=== PATIENT | male | born 1955 | race Caucasian/White ===

== ENCOUNTER 2018-12-12 09:05 | Inpatient (IN) | payer BC, SELFPAY ==
[2018-12-12] MEDS ORDERED: Acetaminophen 500 MG TAB PO PRN (10:52)
[2018-12-12] MEDS ORDERED: CCU Electrolyte Replacement 1 EACH FS ONE (10:52)
[2018-12-12] MEDS ORDERED: Midazolam HCl 2 mg/2 ml Vial ONE (11:25)
[2018-12-12] MEDS ORDERED: Propofol 1,000 MG/100 ML VIAL IV ONE (11:34)
[2018-12-12] MEDS ORDERED: Vecuronium 10 MG VIAL ONE ×2 (11:44→12:25)
[2018-12-12] MEDS ORDERED: Ventilator Sedation Protocol 1 EACH FS SCH (12:15)
[2018-12-12 12:52] LABS: Actual Bicarbonate (HCO3a) 24.7 mEq/L (22-28); Base Excess (BEa) 3.8 mEq/L (-2.0 to +3.0); Calcium, Ionized 1.06 mmol/L (1.12-1.30); Carboxyhemoglobin (COHb) 0.5 gm% (0.0-3.0); Hemoglobin (Hb) 10.3 g/dL (14.0-18.0); O2 Tension (PaO2) 282.4 mmHg (> 80.0); Potassium - ABG Lab 4.47 mmol/L (3.70-5.30)
[2018-12-12 12:58] LABS: CO2 Tension 25.6 mmHg (35.0-45.0); Puncture Site RRA
[2018-12-12 13:01] LABS: Hemoglobin 10.3 g/dL (14.0-18.0); Mean Corpuscular HGB CONC 32.8 g/dL (32.0-36.0); Mean Corpuscular Hemoglobin 30.8 pg (27.0-31.0); Mean Platelet Volume 8.4 fL (7.4-10.4); Platelet Count 212 thou/uL (130-400); Red Blood Cell (RBC) Count 3.35 mill/uL (4.70-6.10); White Blood Cell (WBC) Count 10.7 thou/uL (4.8-10.8)
[2018-12-12 13:12] LABS: ALT (SGPT) 23 U/L (8-55); AST (SGOT) 22 U/L (5-34); Albumin 2.8 g/dL (3.4-4.8); Alkaline Phosphatase 51 U/L (40-150); Anion Gap 14 mmol/L (10-20); BUN (Urea Nitrogen) 9 mg/dL (8.4-25.7); Bilirubin, Total 0.8 mg/dL (0.2-1.2); Calc. Creatinine Clearance 0 mL/min (70-130); Calcium 8.3 mg/dL (7.8-10.44); Carbon Dioxide 24 mmol/L (23-31); Chloride 102 mmol/L (98-107); Estimated GFR-MDRD Greater than 90; Globulin 3.1 g/dL (2.4-3.5); Glucose 122 mg/dL (80-115); Potassium 4.5 mmol/L (3.5-5.1); Protein, Total 5.9 g/dL (5.8-8.1); Sodium 135 mmol/L (136-145)
[2018-12-12 13:19] VITALS: BMI 30.2
[2018-12-12 13:23] LABS: Band 8 % (5-11); Lymphocytes 2 % (21-51); MDiff Complete? YES; Monocytes 3 % (0-10); Neutrophil 87 % (42-75); Platelet Morphology Comment Appears Adequate
[2018-12-12] MEDS ORDERED: Potassium Chloride 40 MEQ in Sodium Chloride 0.9% 250 ML 250 ML IVPB PRN (13:30)
[2018-12-12] MEDS ORDERED: Potassium Chloride 20 MEQ TAB PO PRN (13:30)
[2018-12-12] MEDS ORDERED: Potassium Phosphate 15 MMOL in Sodium Chloride 0.9% 250 ML 250 ML IV PRN (13:30)
[2018-12-12] MEDS ORDERED: Potassium Chloride 40 MEQ in Premix Bag 1 BAG IVPB PRN (13:30)
[2018-12-12] MEDS ORDERED: Potassium Phosphate 12 MMOL in Sodium Chloride 0.9% 250 ML 250 ML IV PRN (13:30)
[2018-12-12] MEDS ORDERED: Magnesium Oxide 400 MG TAB PO PRN ×2 (13:30)
[2018-12-12] MEDS ORDERED: Potassium Phosphate 9 MMOL in Sodium Chloride 0.9% 100 ML IVPB PRN (13:30)
[2018-12-12] MEDS ORDERED: Magnesium 2 GM/NS 0.9% 100 ML 2 GM in Premix Bag 1 BAG IVPB PRN (13:30)
[2018-12-12] MEDS ORDERED: Morphine 2 MG/ML SYRINGE SLOW IVP PRN (13:34)
[2018-12-12] MEDS ORDERED: Lorazepam 2 MG/ML VIAL SLOW IVP PRN (13:34)
[2018-12-12] MEDS ORDERED: Fentanyl BOLUS 250 ML IVPB PRN (13:34)
[2018-12-12] MEDS ORDERED: Propofol BOLUS 1,000 MG/100 ML VIAL IV PRN (13:34)
--- NOTE | 2018-12-12 13:42 | OP ---
DATE OF PROCEDURE: 12/12/2018 PROCEDURE PERFORMED: Endotracheal intubation and fiberoptic bronchoscopy. PREOPERATIVE DIAGNOSIS: Respiratory failure with bilateral infiltrates. POSTOPERATIVE DIAGNOSIS: Respiratory failure with bilateral infiltrates. ANESTHESIA: The patient was given a total of 20 mg etomidate IV, he was also given propofol and Norcuron 10 mg IV at the conclusion of the procedure. Informed consent was obtained verbally from the patient's and from the patient itself. He understood that this was necessary because of progressive respiratory failure and bilateral infiltrates from pneumonia. The patient was placed in supine position. He was preoxygenated with BiPAP 100%. I intubated him orally with a GlideScope on the first inspection with a size 3 scope blade. It was impossible to pass the tube through the cords. On the second attempt with a size 4 blade, I intubated him on the first time; however, the cup from the tube leaked and had to be exchanged. The exchange was somewhat problematic and essentially, I would go back and just reintubate him with 7.5 endotracheal tube under direct GlideScope visualization. End tidal CO2 was confirmed by auscultation, the color change on the end-tidal CO2 detector. It should be noted that the intubation is very difficult secondary to anterior airway. The patient was then placed on mechanical ventilation. A bronchoscope was placed down the endotracheal tube. The tube was approximately 5 cm above the armin. There were some hemorrhagic areas noted in the right middle lobe and left upper lobe. Otherwise, the airways was clear. Bronchoalveolar lavage was performed with 100 mL of normal saline in the right middle lobe and sent for appropriate studies, and that procedure was tolerated well. Job ID: [id number]
[2018-12-12] MEDS: Sodium Chloride 0.45% 1,000 ML IV SCH (13:44)
[2018-12-12] MEDS: Cefepime 1 GM in Sodium Chloride 0.9% 100 ML IVPB SCH (13:45)
--- NOTE | 2018-12-12 13:46 | HP ---
This is 120 minutes of critical care time. 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 His initial complaint was some diarrhea, some vomiting, weakness, and fatigue. Initially, felt that he could have pneumonia. He was started on Rocephin and Zithromax in the emergency room, but had been taking Levaquin and vancomycin in the hospital. Over the last 4 days, he has felt worse to the point, where he is now requiring BiPAP for oxygenation ventilation. His x-ray has severely worsened. The [facility] did not have any pulmonary presence continuously on the campus. A friend of Dr. Aguila, Dr. Jhony Thornton contacted me and asked if I would take him in transfer, which I was happy to do this morning. I touch base with Dr. March and Dr. Monroy in [facility], who gave me a good report. PAST MEDICAL HISTORY: Essentially negative. PAST SURGICAL HISTORY: Umbilical hernia repair. MEDICATIONS: Prior to admission; 1. Propecia 1 mg daily. 2. Ibuprofen 800 mg four times a week. SOCIAL HISTORY: He is an actively practicing dentist. He does not drink alcohol. Does not use illicit drugs. Does not smoke. He is . ALLERGIES: PENICILLIN WAS REPORTED AN ALLERGY WHEN HE WAS A CHILD. HE DOES NOT KNOW WHAT KIND OF REACTION THAT CAUSES. REVIEW OF SYSTEMS: I spoke to Dr. Aguila briefly before he was intubated. He said he has had some nausea, but other than that his GI symptoms abated. He had a dry cough. He was complaining of a congested nose. PHYSICAL EXAMINATION: VITAL SIGNS: Heart rate 76, blood pressure 135/83, O2 saturation 100%, respiratory rate 24, and temperature 97.1. GENERAL: He is a well-developed, well-nourished male, who was in acute respiratory distress. His minute ventilation was about 30 L/minute and his respiratory rate was about 50 when he was on the BiPAP. HEENT: Pupils are reactive. Sclerae anicteric. Oropharynx dry. NECK: Without adenopathy or JVD. LUNGS: He had diffuse crackles bilaterally. CARDIOVASCULAR: S1 and S2, slightly tachycardic without murmur. ABDOMEN: Soft, obese, nontender, and nondistended. EXTREMITIES: No clubbing, cyanosis, or edema. No rashes noted. NEUROLOGIC: He was moving all 4 extremities and was alert and oriented. LABORATORY DATA: His laboratory data from this facility is pending. The labs I have from [facility] showed a negative influenza A and B titer, hemoglobin A1c of 5.5. PH is 7.42, pCO2 of 35, pO2 of 71 on the BiPAP yesterday. White blood cell 9.2, hemoglobin 9.7, hematocrit 29.4, and platelet count 185 with 77% neutrophils, no bandemia noted, but prior to that he had 40 and 44 bands on the two previous days. CBCs; his last sodium 135, potassium 3.8, chloride 101, CO2 of 27, BUN 9, creatinine 1.0, glucose 115, and calcium 7.9. I reviewed x-rays from his day of admission until yesterday from [facility]. Also reviewed the one that was taken today after I intubated him. He has diffuse bilateral infiltrates, which are worse at the bases. Endotracheal tube was slightly high about 5 cm, which has been placed lower. He has an OG tube in place. ASSESSMENT: 1. Bilateral pneumonia, which may be viral versus bacteria. 2. Acute hypoxic respiratory failure, requiring mechanical ventilation. 3. Anemia-etiology uncertain. PLAN: 1. Dr. Aguila was worsening on BiPAP and continued respiratory distress. I told him and his that I recommended that he be intubated and we just ride this out. I have consulted Dr. Beltran from Infectious Disease to help with antibiotic choice. I am empirically starting the patient on steroids. I have performed bronchoscopy so that we could send the material to the lab and see if anything else grows out; however, since he is already on antibiotics, the yield from bronchoscopy is going to be quite low. 2. DVT prophylaxis with enoxaparin and SCDs. 3. GI prophylaxis with Protonix. 4. Start enteral tube feeds per nutrition recommendations. 5. Check echocardiogram. 6. Prognosis, guarded. This patient's acuity is highly complex. Job ID: [id number]
[2018-12-12] MEDS: Vecuronium 10 MG VIAL IVP PRN ×2 (13:47→14:53)
[2018-12-12] MEDS ORDERED: Acetaminophen 650 MG/20.3 ML UDCUP PO PRN (14:00)
--- NOTE | 2018-12-12 14:16 | RAD ---
PORTABLE AP CHEST: Date: 12/12/18 HISTORY: On ventilator. COMPARISON: None available. FINDINGS: Endotracheal tube is noted in place with tip overlying the T4 vertebral body and above the level of t he armin. Nasogastric tube is noted in place, which courses into the left upper quadrant, but tip is not imaged. There are confluent opacities seen at each lung base and in the mid lung zones bilaterally with more dense area of consolidation at the right lung base. Findings are likely attributable to multifocal pn eumonia, and atypical pneumonia is a possibility. Cardiac silhouette is within normal limits. Pulmona ry vasculature is at the upper limits of normal. Osseous structures are intact. IMPRESSION: 1. Findings likely attributable to multifocal pneumonia with dense area of consolidation at the righ t lung base. Atypical pneumonia is a possibility. Follow-up to complete resolution is recommended. 2. Lines and tubes in place. POS: [facility]
[2018-12-12] MEDS: Vancomycin HCl 1 GM in Premix Bag 1 BAG IVPB SCH (15:00)
[2018-12-12] MEDS ORDERED: Piperacillin/Tazobactam 3.375 GM in Sodium Chloride 0.9% 100 ML IVPB SCH (18:00)
[2018-12-12] MEDS: fentaNYL Citrate/PF 2,000 MCG in Sodium Chloride 0.9% 60 ML IV SCH (18:11)
[2018-12-12] MEDS: Propofol 1,000 MG/100 ML VIAL IV PRN (21:40)
[2018-12-13] MEDS: Sodium Chloride 0.45% 1,000 ML IV SCH ×2 (00:05→18:38)
[2018-12-13] MEDS: Vecuronium 10 MG VIAL IVP PRN ×2 (00:05→00:35)
[2018-12-13] MEDS: Vancomycin HCl 1 GM in Premix Bag 1 BAG IVPB SCH ×2 (02:11→14:51)
[2018-12-13] MEDS: Cefepime 1 GM in Sodium Chloride 0.9% 100 ML IVPB SCH ×2 (02:11→14:50)
[2018-12-13] MEDS: Propofol 1,000 MG/100 ML VIAL IV PRN ×4 (03:48→20:29)
[2018-12-13 04:42] LABS: #Lymphocytes 0.6 thou/uL (1.20-3.40); #Monocytes 0.7 thou/uL (0.11-0.59); %Eosinophils 0.1 % (0.0-10.0); %Lymphocytes 6.8 % (21.0-51.0); %Monocytes 8.3 % (0.0-10.0); %Neutrophils 84.8 % (42.0-75.0); Hemoglobin 9.5 g/dL (14.0-18.0); Mean Corpuscular HGB CONC 32.3 g/dL (32.0-36.0); Mean Corpuscular Hemoglobin 30.5 pg (27.0-31.0); Mean Corpuscular Volume 94.6 fL (78.0-98.0); Mean Platelet Volume 8.1 fL (7.4-10.4); Platelet Count 221 thou/uL (130-400); RBC Distribution Width 13.1 % (11.5-14.5); Red Blood Cell (RBC) Count 3.11 mill/uL (4.70-6.10); White Blood Cell (WBC) Count 8.2 thou/uL (4.8-10.8)
[2018-12-13 05:05] LABS: ALT (SGPT) 22 U/L (8-55); AST (SGOT) 15 U/L (5-34); Albumin 2.6 g/dL (3.4-4.8); Alkaline Phosphatase 50 U/L (40-150); Anion Gap 13 mmol/L (10-20); BUN (Urea Nitrogen) 14 mg/dL (8.4-25.7); Bilirubin, Total 0.4 mg/dL (0.2-1.2); Calc. Creatinine Clearance 142 mL/min (70-130); Calcium 8.4 mg/dL (7.8-10.44); Carbon Dioxide 24 mmol/L (23-31); Chloride 105 mmol/L (98-107); Estimated GFR-MDRD Greater than 90; Glucose 200 mg/dL (80-115); Potassium 4.3 mmol/L (3.5-5.1); Protein, Total 5.6 g/dL (5.8-8.1); Sodium 138 mmol/L (136-145)
[2018-12-13 06:54] LABS: Actual Bicarbonate (HCO3a) 24.8 mEq/L (22-28); Calcium, Ionized 1.16 mmol/L (1.12-1.30); Carboxyhemoglobin (COHb) 0.1 gm% (0.0-3.0); O2 Tension (PaO2) 86.4 mmHg (> 80.0); Potassium - ABG Lab 4.18 mmol/L (3.70-5.30)
[2018-12-13 06:57] LABS: Puncture Site RRA
--- NOTE | 2018-12-13 07:53 | RAD ---
PORTABLE CHEST: HISTORY: Respiratory distress. COMPARISON: Prior day's exam. FINDINGS: Endotracheal and NG tubes are in satisfactory position. Interstitial alveolar lung changes are stabl e. IMPRESSION: Stable exam. POS: [facility]
[2018-12-13] MEDS ORDERED: Dextrose 50% Abboject 50 ML SYRINGE SLOW IVP PRN (08:13)
[2018-12-13] MEDS ORDERED: Dextrose 5% in Water 1,000 ML IV PRN (08:13)
--- NOTE | 2018-12-13 08:15 | CON ---
DATE OF CONSULTATION: 12/12/2018 REASON FOR CONSULTATION: Severe pneumonia. 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 Some of the emesis had some coffee grounds associated with it. He was seen at the [facility] ER and admitted. Given Rocephin, Zithromax and then transition to Levaquin and vancomycin in the hospital. There was worsening of the initial infiltrates, he developed diffuse pneumonitis pattern. The influenza A and B antigen test was negative. He was placed on BiPAP and because of concerns with the status of the ICU at [facility] with irregular staffing, it was decided to transfer him to [facility] and he was accepted by Dr. Freed and the patient was transferred to the ICU at [facility], and he was intubated this morning. I spoke with his son and apparently one week before his illness, two other members of the family had similar diarrheal and vomiting episodes. The patient is intubated, is on FiO2 of 45, PEEP of 5, and his O2 saturations just dropped after he was moved to the left lateral decubitus , they had been in the upper 90s, but now they are in the 88 range. PAST MEDICAL HISTORY: Negative, except for arthritis of the thumbs, for which he takes ibuprofen daily. He had an umbilical hernia repair in the past. SOCIAL HISTORY: He is a dentist. He does not smoke. . No alcoholic beverage use. ALLERGIES: HE IS ALLERGIC TO PENICILLIN WHEN HE WAS A CHILD, PROBABLY NOT SIGNIFICANT. FAMILY HISTORY: Noncontributory. CURRENT MEDICATIONS: 1. Albuterol. 2. Cefepime. 3. Levofloxacin. 4. Vancomycin. 5. He is Medrol as well. 6. Morphine. 7. Pantoprazole. PHYSICAL EXAMINATION: VITAL SIGNS: T-max 102 and blood pressure 117/60, O2 saturations ranged from 88 % to 96% depending on what decubitus he is in; he is right now 93%. Urine output thus far is 360 this morning. SKIN: Peripheral IV access and the Ott catheter. GENERAL: The patient is sedated. HEENT: Conjunctivae are clear. Pupils are miotic as expected. Orotracheal intubation. NECK: Without jugular vein distention. Supple. LUNGS: Symmetric air entry. A few crackles in the right base. ABDOMEN: Soft, not distended. No organomegaly. No ascites. No bladder distention. Ott catheter in place. HEART: S1 and S2 without murmurs. No S3 or S4. EXTREMITIES: No joint inflammatory activity. No edema. Pulses are 1+ in dorsalis pedis. Cap refill is normal. He is sedated, SO WE CANNOT TEST HIS MOVEMENTS or his cognitive function. LABORATORY DATA: White cell count was 10.7, hemoglobin 10.3, and platelets 212 with 87% neutrophils, white cell count was 4.3 with 39% bands. His ABGs, pH of 7.6, pCO2 of 25, pO2 of 282. Sodium 135 and creatinine 0.77. Liver profile normal. Albumin 2.8. Globulin 3.1. Microbiology, we have the bronchoalveolar lavage with numerous WBCs, but cultures are pending. Respiratory virus PCR panel was pending as well. DIAGNOSTIC DATA: Chest x-ray shows multifocal pneumonitis with more dense consolidation localized to the right lung base which is where the whole thing started if one looks at the initial chest x-ray done at the [facility]. The bronchoscopy notes have been reviewed. There are some hemorrhagic areas in the right middle lobe and left upper lobe. Otherwise, airways were clear. ASSESSMENT: Otherwise, healthy dentist, who developed nausea, vomiting, and diarrhea with a similar illness in a few members of the family the week before his illness started now with rapidly progressive multifocal pneumonia. DISCUSSION: The differential diagnosis includes a viral pneumonia with or without superimposed bacterial pneumonitis. We will wait for the assays and continue current antimicrobial regimen. The possibility of aspiration does not appear to be likely noninfectious autoimmune process with vasculitis is. We will have to be considered depending on the clinical course and results of the assays and cultures. Job ID: [id number] [facility]
[2018-12-13] MEDS ORDERED: Pantoprazole 40 MG VIAL IVP SCH (09:00)
[2018-12-13] MEDS: Pantoprazole 40 MG VIAL IVP SCH (09:10)
[2018-12-13] MEDS: Enoxaparin Sodium 40 MG/0.4 ML SYRINGE SC SCH (09:25)
--- NOTE | 2018-12-13 09:34 | PRG ---
DATE OF SERVICE: 12/13/2018 PULMONARY/CRITICAL CARE PROGRESS NOTE TIME SPENT: 35 minutes critical time. 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 He will wake up and squeeze hands when asked. OBJECTIVE: VITAL SIGNS: On exam, his temperature is 97.7 with a T-max of 102, pulse 59, blood pressure 105/58. A 24-hour intake 2080, output 2145. Weight 216 pounds. HEENT: Intubated. OG tube in place. NECK: No JVD. LUNGS: Crackles anteriorly. CARDIAC: S1 and S2. Regular. ABDOMEN: Soft. EXTREMITIES: No edema. LABORATORY DATA: Sodium 138, potassium 4.3, chloride 105, CO2 of 24, BUN 14, creatinine 0.7, glucose 200. BNP was 299, albumin 2.6. White blood cell count 8.2, hematocrit 29.4, and platelet count 221. His nasopharyngeal swab was positive for type A flu, but his PCR respiratory virus panel did not show type A influenza. His chest x-ray shows continued bilateral infiltrates, which I do not think has changed much since the day before. Blood gas; pH 7.40, pCO2 of 41, pO2 of 86, that is on bilevel 24/10 with FiO2 of 40%. ASSESSMENT: 1. Acute respiratory failure secondary to bilateral pneumonia. 2. Acute respiratory distress syndrome. 3. Anemia, probably due to illness. 4. Hyperglycemia due to steroid use. PLAN: 1. The patient's oxygenation has improved. I will go down some on his bilevel pressures. 2. Up in a chair as tolerated. 3. Discontinue use of all paralytics. 4. Continue broad-spectrum IV antibiotics. 5. Appreciate input of Dr. Beltran. 6. Add sliding scale insulin. 7. Continue enteral tube feeds. 8. I will update family when they are available. Job ID: [id number]
[2018-12-13] MEDS: HumaLOG 300 UNITS/3 ML VIAL SC PRN ×2 (12:34→18:38)
[2018-12-13] MEDS ORDERED: Vancomycin HCl 1.25 GM in Premix Bag 1 BAG IVPB SCH (17:00)
--- NOTE | 2018-12-13 17:45 | PRG ---
DATE OF SERVICE: 12/13/2018 SUBJECTIVE: Still intubated and sedated in the ICU. He is on a bilevel at this time. His T-max was 102 on December 12. He has been afebrile since. OBJECTIVE: VITAL SIGNS: Blood pressure 111/66, pulse 81, respirations 16, and O2 saturation 97%. HEENT: Conjunctivae are clear. Orotracheal intubation. LUNGS: Coarse breath sounds. HEART: S1 and S2. Regular rate. ABDOMEN: Soft not distended. NEUROLOGIC: Could not test his movements. According to the nurse, he will arouse when the sedation is withdrawn and starts moving around. LABORATORY DATA: White cell count 8.2, hemoglobin 9.5, platelets 221 with 84% neutrophils. PH 7.4, pCO2 of 41, PO2 of 86. Sodium 138, creatinine 0.74. Liver profile is normal. Albumin 2.6. Respiratory virus PCR panel, no virus was detected. Culture from the BAL, quantitative, rare normal respiratory gabby present. Followup chest x-ray, interstitial alveolar changes, which are stable. ASSESSMENT AND DISCUSSION: Nausea, vomiting, diarrhea, and respiratory illness with rapid progression, respiratory failure, multifocal pneumonia with thus far negative microbiology workup. Differential diagnosis again is community-acquired pneumonia with severe manifestation with usual pathogens versus a more resistant pathogen or a noninfectious disorder. Among the noninfectious disorder, vasculitides and etiopathic pneumonitis in forms of pneumonitis are less likely. The patient probably developed ARDS type of picture, now with requiring high levels of ventilatory support, currently on broad-spectrum coverage. Cefepime, levofloxacin, and vancomycin to be continued. Increase the cefepime dosage. Job ID: [id number]
[2018-12-13 18:01] LABS: Vancomycin, Trough 23.9 ug/mL
[2018-12-13 18:04] LABS: Complement-C4 15.4 mg/dL (15-53)
[2018-12-13] MEDS ORDERED: VANCOMYCIN IVPB PRN (18:14)
[2018-12-13] MEDS: fentaNYL Citrate/PF 2,000 MCG in Sodium Chloride 0.9% 60 ML IV SCH (22:17)
[2018-12-14] MEDS: Cefepime 2 GM in Sodium Chloride 0.9% 100 ML IVPB SCH ×2 (00:35→13:49)
[2018-12-14] MEDS: HumaLOG 300 UNITS/3 ML VIAL SC PRN ×4 (00:45→23:57)
[2018-12-14] MEDS: Vancomycin HCl 1 GM in Premix Bag 1 BAG IVPB SCH ×2 (01:34→13:49)
[2018-12-14] MEDS: Propofol 1,000 MG/100 ML VIAL IV PRN ×5 (01:34→23:32)
[2018-12-14] MEDS: Sodium Chloride 0.45% 1,000 ML IV SCH ×2 (04:28→12:32)
[2018-12-14 05:02] LABS: #Eosinphils 0.1 thou/uL (0.0-0.7); #Lymphocytes 1.2 thou/uL (1.20-3.40); #Neutrophils 10.2 thou/uL (1.40-6.50); %Basophils 0.1 % (0.0-1.0); %Eosinophils 0.5 % (0.0-10.0); %Lymphocytes 9.4 % (21.0-51.0); %Monocytes 7.9 % (0.0-10.0); %Neutrophils 82.1 % (42.0-75.0); Hemoglobin 9.5 g/dL (14.0-18.0); Mean Corpuscular HGB CONC 32.3 g/dL (32.0-36.0); Mean Corpuscular Hemoglobin 30.5 pg (27.0-31.0); Mean Corpuscular Volume 94.6 fL (78.0-98.0); Mean Platelet Volume 8.2 fL (7.4-10.4); Platelet Count 298 thou/uL (130-400); RBC Distribution Width 13.1 % (11.5-14.5); Red Blood Cell (RBC) Count 3.12 mill/uL (4.70-6.10); White Blood Cell (WBC) Count 12.4 thou/uL (4.8-10.8)
[2018-12-14 05:23] LABS: Anion Gap 13 mmol/L (10-20); BUN (Urea Nitrogen) 23 mg/dL (8.4-25.7); Calc. Creatinine Clearance 144 mL/min (70-130); Calcium 8.6 mg/dL (7.8-10.44); Carbon Dioxide 24 mmol/L (23-31); Chloride 105 mmol/L (98-107); Estimated GFR-MDRD Greater than 90; Glucose 184 mg/dL (80-115); Potassium 4.5 mmol/L (3.5-5.1); Sodium 137 mmol/L (136-145)
[2018-12-14 06:43] LABS: Base Excess (BEa) 1.9 mEq/L (-2.0 to +3.0); CO2 Tension 38.9 mmHg (35.0-45.0); Calcium, Ionized 1.17 mmol/L (1.12-1.30); Carboxyhemoglobin (COHb) 1.1 gm% (0.0-3.0); Hemoglobin (Hb) 10.4 g/dL (14.0-18.0); O2 Tension (PaO2) 60.8 mmHg (> 80.0); Potassium - ABG Lab 4.39 mmol/L (3.70-5.30); pH, Arterial 7.44 (7.35-7.45)
[2018-12-14 06:45] LABS: Puncture Site RB
[2018-12-14 06:46] LABS: ALV-art Gradient 175.775 (0-20)
[2018-12-14] MEDS: Enoxaparin Sodium 40 MG/0.4 ML SYRINGE SC SCH (08:44)
--- NOTE | 2018-12-14 09:04 | PRG ---
DATE OF SERVICE: 12/14/2018 TIME SPENT: 35 minutes critical time. SUBJECTIVE: The patient remains intubated on mechanical ventilation. The nurses have had a difficult time sedating him as he becomes agitated quite easily. OBJECTIVE: VITAL SIGNS: His temperature is 98.1 with no fever overnight, pulse is running in the 60s, blood pressure 133/67. A 24-hour intake 3175, output ?. HEENT: Unremarkable. NECK: No JVD. LUNGS: Inspiratory crackles bilaterally. CARDIAC: S1, S2 regular. ABDOMEN: Soft, nontender. EXTREMITIES: No edema. LABORATORY DATA: His echo showed no abnormal findings. His chest x-ray shows minimal improvement. ABG; pH 7.44, pCO2 of 38, pO2 of 60, that is on bilevel, a rate of 16, high pressure 20, low pressure 10, FiO2 of 40%. White blood cell count 12.4, hemoglobin 9.5, hematocrit 29.6, platelet count 298. Sodium 137, potassium 4.5, chloride 105, CO2 of 24, BUN 23, creatinine 0.7, glucose 184. Micro shows no growth today. ASSESSMENT: 1. Acute respiratory distress syndrome. 2. Bilateral pneumonia. 3. Acute hypoxic respiratory failure, requiring mechanical ventilation. 4. Hyperglycemia secondary to steroids. 5. Slightly elevated BUN, which I think is probably due to steroid use. PLAN: 1. I am going to try him on SIMV ventilation under the volume control plus mode. 2. Continue steroids, but reduced dose. 3. Continue IV antibiotics. 4. Continue enteral tube feeds. 5. I will update the family when they are available. I still think we are looking several more days of mechanical ventilation. 6. Precedex was added to help with the patient's anxiety. 7. Vitamin C and thiamine will be added for anti-inflammatory properties. Job ID: [id number] [facility]
--- NOTE | 2018-12-14 09:24 | RAD ---
CHEST 1 VIEW: Date: 12/14/18 HISTORY: Dyspnea. Follow-up. COMPARISON: 12/13/18. FINDINGS: Cardiac silhouette is magnified by projection and partially obscured by lingular infiltrate that has progressed slightly. Upper lobes have otherwise improved slightly. Pulmonary vascular congestion and right basilar infiltrate is unchanged. Lines and tubes appear unchanged in position. IMPRESSION: Slight interval worsening and infiltrate of the lingula, but otherwise slight clearing of the upper l obes. POS: [facility]
[2018-12-14] MEDS: Pantoprazole 40 MG VIAL IVP SCH (11:04)
--- NOTE | 2018-12-14 15:16 | PRG ---
DATE OF SERVICE: 12/14/2018 SUBJECTIVE: Mr. Aguila is improving. His ventilatory support requirement has decreased significantly. OBJECTIVE: VITAL SIGNS: His temperature has been normal since the first day of admission. Blood pressure 140/80, O2 saturation 98% with 40% FiO2, and 9 of PEEP. HEENT: Ocular movements conjugate. LUNGS: Symmetric, somewhat coarse breath sounds, but better than before. HEART: S1 and S2. Regular rate. ABDOMEN: Soft and not distended. LABORATORY DATA: His white cell count is 12.4, hemoglobin 9.5, platelets 298. Sodium 137, creatinine 0.73. Microbiology have polymicrobial gabby from the bronchoalveolar lavage. One of those organisms is probably the culprit here. ASSESSMENT AND DISCUSSION: Nausea, vomiting, diarrhea, and rapid progressive multifocal pneumonia with now improving ventilatory profile. The most likely scenario is a bacterial pneumonia and should continue to improve in the next few days eventually be extubated. We will look at the profile of the organisms and see what oral antimicrobial he will be transitioned to. Job ID: [id number]
[2018-12-15] MEDS: Cefepime 2 GM in Sodium Chloride 0.9% 100 ML IVPB SCH ×2 (01:03→14:03)
[2018-12-15] MEDS: Vancomycin HCl 1 GM in Premix Bag 1 BAG IVPB SCH ×2 (02:04→14:04)
[2018-12-15] MEDS: Propofol 1,000 MG/100 ML VIAL IV PRN (03:52)
[2018-12-15 03:57] LABS: #Eosinphils 0.1 thou/uL (0.0-0.7); #Lymphocytes 1.2 thou/uL (1.20-3.40); #Monocytes 0.9 thou/uL (0.11-0.59); #Neutrophils 9.3 thou/uL (1.40-6.50); %Basophils 0.2 % (0.0-1.0); %Eosinophils 0.7 % (0.0-10.0); %Lymphocytes 10.3 % (21.0-51.0); %Neutrophils 80.8 % (42.0-75.0); Hemoglobin 9.8 g/dL (14.0-18.0); Mean Corpuscular HGB CONC 32.6 g/dL (32.0-36.0); Mean Corpuscular Hemoglobin 30.7 pg (27.0-31.0); Mean Corpuscular Volume 94.2 fL (78.0-98.0); Mean Platelet Volume 7.9 fL (7.4-10.4); Platelet Count 322 thou/uL (130-400); RBC Distribution Width 13.2 % (11.5-14.5); Red Blood Cell (RBC) Count 3.21 mill/uL (4.70-6.10); White Blood Cell (WBC) Count 11.5 thou/uL (4.8-10.8)
[2018-12-15 04:18] LABS: Anion Gap 12 mmol/L (10-20); BUN (Urea Nitrogen) 27 mg/dL (8.4-25.7); Calc. Creatinine Clearance 136 mL/min (70-130); Calcium 8.5 mg/dL (7.8-10.44); Carbon Dioxide 24 mmol/L (23-31); Chloride 106 mmol/L (98-107); Estimated GFR-MDRD Greater than 90; Glucose 178 mg/dL (80-115); Potassium 4.9 mmol/L (3.5-5.1); Sodium 137 mmol/L (136-145)
[2018-12-15] MEDS: Sodium Chloride 0.45% 1,000 ML IV SCH (05:34)
[2018-12-15] MEDS: HumaLOG 300 UNITS/3 ML VIAL SC PRN (06:09)
[2018-12-15 06:51] LABS: Base Excess (BEa) 3.9 mEq/L (-2.0 to +3.0); CO2 Tension 40.1 mmHg (35.0-45.0); Calcium, Ionized 1.18 mmol/L (1.12-1.30); Carboxyhemoglobin (COHb) 0.5 gm% (0.0-3.0); Hemoglobin (Hb) 11.4 g/dL (14.0-18.0); O2 Tension (PaO2) 106.3 mmHg (> 80.0); Potassium - ABG Lab 4.85 mmol/L (3.70-5.30); pH, Arterial 7.46 (7.35-7.45)
[2018-12-15 07:36] LABS: Puncture Site RR
[2018-12-15 07:37] LABS: ALV-art Gradient 128.775 (0-20)
--- NOTE | 2018-12-15 08:10 | RAD ---
CHEST 1 VIEW: HISTORY: Dyspnea. Followup. COMPARISON: 12/14/2018. FINDINGS: Cardiac silhouette remains magnified and upper limits of normal in size. Left cardiac margin is now better defined. Patchy infiltrates within the lower lobes are again demonstrated, now with obscurati on of the right hemidiaphragm. Mediastinum is midline. Lines and tubes appear unchanged in position . No evidence of pneumothorax. IMPRESSION: Interval improvement in lingular infiltrate with worsening of right basilar infiltrate. Upper lobes have otherwise continued to clear. POS: [facility]
[2018-12-15] MEDS ORDERED: Furosemide 20 MG/2 ML VIAL IVP SCH (08:15)
[2018-12-15] MEDS: Pantoprazole 40 MG VIAL IVP SCH (08:22)
[2018-12-15] MEDS: Enoxaparin Sodium 40 MG/0.4 ML SYRINGE SC SCH (08:22)
--- NOTE | 2018-12-15 08:38 | PRG ---
DATE OF SERVICE: 12/15/2018 TIME SPENT: 35 minutes of critical care time. SUBJECTIVE: The patient is awake, on Precedex. He is doing well. He remains on mechanical ventilation. OBJECTIVE: VITAL SIGNS: On exam, his temperature is 98.3, pulse is running in the 50s, blood pressure 152/77, O2 saturation 100%. A 24-hour intake 3339, output 2150. HEENT: Unremarkable. NECK: No JVD. LUNGS: Fairly clear bilaterally. CARDIAC: S1, S2. Regular. ABDOMEN: Soft. EXTREMITIES: Trace edema. LABORATORY DATA: Sodium 137, potassium 4.9, chloride 106, CO2 of 24, BUN 27, creatinine 0.7, glucose 178. White blood cell count 11.5, hematocrit 30.2, and platelet count 322. PH of 7.46, pCO2 of 40, pO2 of 106, that is on SIMV rate 8, tidal volume 600, PEEP 8, pressure support 10, and FiO2 of 40%. His bronchoalveolar lavage grew out various organisms. The quantitation of which was not significant. ASSESSMENT: 1. Acute respiratory failure requiring mechanical ventilation. 2. Bilateral pneumonia. 3. Slight fluid overload. PLAN: 1. Spontaneous breathing trial with consideration of extubation. 2. Diurese. 3. Stop IV fluids. 4. Appreciate Dr. Beltran' assistance. Job ID: [id number]
[2018-12-15] MEDS ORDERED: DC Sedation Protocol FS ONE (08:54)
--- NOTE | 2018-12-15 15:10 | PQF ---
CLINICAL DOCUMENTATION IMPROVEMENT CLARIFICATION FORM: ICD-10 Updated PLEASE DO AN ADDENDUM TO THE PROGRESS NOTE WITH ANY DOCUMENTATION UPDATES OR ADDITIONS AND CARRY THROUGH TO DC SUMMARY. THANK YOU. DATE: 12/15/18 ATTN: DR. MATHEWS Please exercise your independent, professional judgment in responding to the clarification form. Clinical indicators are provided on the bottom of this form for your review Please check appropriate box(s): [ ] Aspiration Pneumonia [ ] Aspiration Bronchitis [ ] Empirically treating Gram Negative Pneumonia [ ] Empirically treating Anaerobic Pneumonia [ ] Pneumonia secondary to (specify organism / underlying disease) [ ] Simple Pneumonia (community acquired - nosocomial) [ ] Bronchopneumonia [ x ] Pneumonia of unknown etiology [ ] Other diagnosis [ ] Unable to determine In addition, please specify: Present on Admission (POA): [ ] Yes [ ] No [ ] Unable to determine For continuity of documentation, please document condition throughout progress notes and discharge summary. Thank You. CLINICAL INDICATORS - SIGNS / SYMPTOMS / LABS DX: "PNEUMONIA" ID NOTE: "...RAPID PROGRESSIVE MULTIFOCAL PNEUMONIA WITH NOW IMPROVING VENTILATORY PROFILE. THE MOST LIKELY SCENARIO IS A BACTERIAL PNEUMONIA..." WBC 12.4 TEMP 102 RR 28 CRP 291.12 RISKS: SEVERELY WORSENED CHEST XRAY (H&P) RECENT NAUSEA, VOMITING, DIARRHEA, FATIGUE TREATMENT: IV MAXIPIME (12/14-PRESENT) IV VANCOMYCIN (12/14-PRESENT) IV LEVOFLOXACIN (12/13-PRESENT) INTUBATION WITH MECHANICAL VENTILATION BLOOD CULTURES BRONCHIAL CULTURES SERIAL CHEST XRAYS (This form is maintained as a part of the permanent medical record) 2014 [employer]. All Rights Reserved TRISH [email or web address] Office: [phone] [facility] CENTERAlyce
[2018-12-16] MEDS: Vancomycin HCl 1 GM in Premix Bag 1 BAG IVPB SCH (01:32)
[2018-12-16] MEDS: Cefepime 2 GM in Sodium Chloride 0.9% 100 ML IVPB SCH (01:32)
[2018-12-16 01:35] LABS: Vancomycin, Trough 9.7 ug/mL
[2018-12-16 05:12] LABS: Anion Gap 12 mmol/L (10-20); BUN (Urea Nitrogen) 23 mg/dL (8.4-25.7); Calc. Creatinine Clearance 138 mL/min (70-130); Calcium 8.4 mg/dL (7.8-10.44); Carbon Dioxide 27 mmol/L (23-31); Chloride 103 mmol/L (98-107); Estimated GFR-MDRD Greater than 90; Glucose 138 mg/dL (80-115); Potassium 4.3 mmol/L (3.5-5.1); Sodium 138 mmol/L (136-145)
[2018-12-16 05:27] LABS: Band 4 % (5-11); Hemoglobin 10.2 g/dL (14.0-18.0); Hypochromia SLIGHT = 6-15 cells (100X) (0-5/hpf); Lymphocytes 20 % (21-51); MDiff Complete? YES; Mean Corpuscular HGB CONC 32.6 g/dL (32.0-36.0); Mean Corpuscular Hemoglobin 30.6 pg (27.0-31.0); Mean Corpuscular Volume 93.7 fL (78.0-98.0); Mean Platelet Volume 7.7 fL (7.4-10.4); Monocytes 3 % (0-10); Neutrophil 72 % (42-75); Platelet Count 352 thou/uL (130-400); Platelet Morphology Comment Appears Adequate; RBC Distribution Width 13.1 % (11.5-14.5); Reactive Lymphocytes 1 % (0-10); Red Blood Cell (RBC) Count 3.33 mill/uL (4.70-6.10)
[2018-12-16] MEDS: Pantoprazole 40 MG VIAL IVP SCH (09:27)
[2018-12-16] MEDS: Enoxaparin Sodium 40 MG/0.4 ML SYRINGE SC SCH (09:28)
--- NOTE | 2018-12-16 09:35 | PRG ---
DATE OF SERVICE: 12/16/2018 SUBJECTIVE: He is doing well, extubated, has no acute complaints other than weakness. OBJECTIVE: VITAL SIGNS: His temperature is 98.6, pulse 79, blood pressure 156/83, O2 saturation 100%, a 24-hour intake 1, output 7905. HEENT: Unremarkable. NECK: No JVD. CHEST: Clear. CARDIAC: S1 and S2, regular. ABDOMEN: Soft. EXTREMITIES: No edema. LABORATORY DATA: White blood cell count 17, hematocrit 31.2, and platelet count 352. Sodium 138, potassium 4.3, chloride 103, CO2 of 27, BUN 23, creatinine 0.7, glucose 138. ASSESSMENT: 1. Bilateral pneumonia. 2. Status post acute respiratory failure. 3. Hyperglycemia secondary to steroid use. PLAN: Transfer to the medical floor. Increase activity. Continue his Levaquin. Change cefepime to Omnicef. Consider discontinuing vancomycin when okay with Dr. Beltran. Main issue now is advancing physical therapy and working toward discharge. Job ID: [id number]
--- NOTE | 2018-12-16 09:49 | RAD ---
PORTABLE CHEST: COMPARISON: Prior day's study. HISTORY: Respiratory distress. FINDINGS: Endotracheal and NG tubes have been removed. Predominantly bibasilar lung changes show slight improv ement as compared to the prior exam. IMPRESSION: Slight improvement to the bibasilar lung change. POS: [facility]
[2018-12-16] MEDS: Vancomycin HCl 1.5 GM in Sodium Chloride 0.9% 250 ML 300 ML IVPB SCH (14:09)
[2018-12-16 16:13] LABS: Cytoplasmic (C-ANCA) <1:20 titer (Neg:<1:20); Perinuclear (P-ANCA) <1:20 titer (Neg:<1:20)
[2018-12-16] MEDS: predniSONE 20 MG TAB PO SCH (18:33)
[2018-12-17] MEDS: Vancomycin HCl 1.5 GM in Sodium Chloride 0.9% 250 ML 300 ML IVPB SCH (03:00)
[2018-12-17] MEDS: Cefdinir 300 MG CAP PO SCH (09:47)
[2018-12-17] MEDS: predniSONE 20 MG TAB PO SCH ×2 (09:47→17:59)
[2018-12-17] MEDS: Enoxaparin Sodium 40 MG/0.4 ML SYRINGE SC SCH (09:47)
--- NOTE | 2018-12-17 10:30 | RAD ---
RADIOGRAPH CHEST 1 VIEW: Date: 12/17/2018. Time: 7:03 a.m. HISTORY: A 63-year-old male for followup of abnormal chest radiograph, infiltrates. COMPARISON: 12/16/2018, 4:39 a.m. FINDINGS: The previously demonstrated alveolar infiltrates in the bilateral lower lung zones are again noted. They have improved on the right. They are unchanged on the left. No pneumothorax. IMPRESSION: Bilateral lower lung zone infiltrates have improved on the right and are stable on the left. MARY [] POS: [facility]
--- NOTE | 2018-12-17 11:38 | PRG ---
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 He is starting to get up and move around. OBJECTIVE: VITAL SIGNS: On exam, his temperature is 97.6, pulse 65, respirations 18, O2 sat 93% on room air, and blood pressure 149/74. HEENT: Unremarkable. NECK: No JVD. LUNGS: He has few inspiratory crackles in the right base, otherwise he is clear. CARDIAC: S1 and S2, regular. ABDOMEN: Soft. EXTREMITIES: No edema. LABORATORY DATA: No labs were performed today. ASSESSMENT: 1. Bilateral pneumonia, which has quickly improved. His x-ray today shows scant right lower lobe findings. 2. Hyperglycemia is secondary to steroid use. 3. Status post acute respiratory failure, requiring mechanical ventilation. PLAN: Discontinue all IV medication including the vancomycin. Ambulate. If he is doing okay, then he can go home tomorrow. Job ID: [id number]
[2018-12-17 16:35] LABS: ANA Symphony (Qualitative) Negative (Negative); ANA Symphony (Quantitative) 0.1 Ratio (< 0.7 Negative); dsDNA IgG Antibody 1.1 IU/mL (<10 Negative)
[2018-12-18 08:08] VITALS: BP 167/79; TEMP 97.7
[2018-12-18] MEDS: predniSONE 20 MG TAB PO SCH (08:22)
[2018-12-18] MEDS: Enoxaparin Sodium 40 MG/0.4 ML SYRINGE SC SCH (08:22)
[2018-12-18] MEDS: Cefdinir 300 MG CAP PO SCH (08:22)
[2018-12-18] MEDS ORDERED: Ascorbic Acid 500 mg Chewable Tablet PO SCH (09:00)
[2018-12-18] MEDS ORDERED: Prevnar 13-Val Conj/PF 0.5 ML SYRINGE IM ONE (11:00)
--- NOTE | 2018-12-18 13:33 | DIS ---
DATE OF ADMISSION: 12/12/2018 DATE OF DISCHARGE: 12/18/2018 DISCHARGE DIAGNOSES: 1. Bilateral community-acquired pneumonia, organism etiology unknown after extensive workup. 2. Acute hypoxic respiratory failure, requiring mechanical ventilation for over 72 hours. 3. Reactive hyperglycemia from steroid use in the hospital. 4. Mild anemia, probably due to current illness. CONSULTATION OBTAINED: Dr. Emmett Beltran from Infectious Disease. PROCEDURES PERFORMED: 1. Bronchoscopy with intubation and subsequent bronchoalveolar lavage with negative findings. 2. Echocardiogram with estimated ejection fraction 55% to 60%. Mildly dilated left atrium. Mild mitral regurgitation. Mild tricuspid regurgitation. Mild pulmonic regurgitation. 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 Over at that facility, he was on noninvasive ventilation, but was not improving. Because of lack of pulmonary coverage, transfer was requested to this institution. Upon arrival here, he had severely altered mental status and was hypoxic on the BiPAP. I elected to immediately intubate him with a 7.5 endotracheal tube. Bronchoscopy was performed with lavage of both of his lungs with subsequent negative cultures. Viral panel was sent, which was negative. Dr. Beltran saw the patient in consultation. The patient was put on Levaquin, vancomycin, and cefepime. Over the first 72 hours after intubation, he slowly improved and he was extubated on 12/15/2018. He was transferred to the floor on 12/16/2018. He was weaned off oxygen. He was able to ambulate without much difficulty. He was given a Prevnar 13 vaccination and flu shot prior to discharge. DISCHARGE MEDICATIONS: 1. Omnicef 300 mg two daily for 4 days. 2. Levaquin 750 mg one daily for 4 days. 3. Prednisone 20 mg one daily for 5 days. 4. Ibuprofen. He can continue current ibuprofen that he takes at home. ACTIVITY: No limitations. He can return to work as soon as he feels up to it. DISCHARGE FOLLOWUP: Follow up with Dr. Freed in 3 weeks with a repeat chest x-ray. Job ID: [id number]
== END 2018-12-18 11:30 | disposition home or self-care (01) | DRG 208 ==
LOC: CCU 09:05 → T4-A 12-16 15:34
PROVIDERS: ADMIT Internal Medicine Critical Care Medicine; ATTEND Internal Medicine Critical Care Medicine
PROC: 0B9D8ZX Drainage of Right Middle Lung Lobe, Via Natural or Artificial Opening Endoscopic, Diagnostic (ICD-10-PCS; principal; 2018-12-12)
PROC: 5A1945Z Respiratory Ventilation, 24-96 Consecutive Hours (ICD-10-PCS; 2018-12-12)
PROC: 0BH17EZ Insertion of Endotracheal Airway into Trachea, Via Natural or Artificial Opening (ICD-10-PCS; 2018-12-12)
DX: J18.9 Pneumonia, unspecified organism (principal); J96.01 Acute respiratory failure with hypoxia; D64.9 Anemia, unspecified; R73.9 Hyperglycemia, unspecified; Z88.0 Allergy status to penicillin
CPT/HCPCS: 36415; 36416; 71045; 80048; 80053; 80202; 82805; 83880; 85025; 86038; 86141; 86160; 86225; 86256; 87040; 87070; 87086; 87633; 87804; 90471; 90662; 90670; 90686; 93306; 94002; 94003; 94640; C9113; G0008; G0009; J0692; J1650; J1940; J1956; J2250; J2704; J2920; J3010; J3370; J3411; J7050; J7506; J7620

== ENCOUNTER 2019-01-02 15:17 | Outpatient (CLI) | payer BC ==
--- NOTE | 2019-01-02 16:12 | RAD ---
TWO VIEWS CHEST: Date: 01-02-19 Provided Clinical History: Dyspnea. FINDINGS: Comparison 12-17-18. The cardiac silhouette appears enlarged. There is interval improvement in aeration at both lung bases . No definite residual airspace disease. No evidence for pleural fluid or pneumothorax. IMPRESSION: Interval improvement in bilateral airspace disease. POS: [facility]
== END 2019-01-02 15:18 | disposition home or self-care (01) ==
LOC: RAD 15:17
PROVIDERS: ATTEND Internal Medicine Critical Care Medicine
DX: R06.00 Dyspnea, unspecified (principal); J98.4 Other disorders of lung
CPT/HCPCS: 71046

== ENCOUNTER 2022-06-02 07:03 | Outpatient (CLI) | payer BC ==
[2022-06-02 07:49] LABS: #Eosinphils 0.2 10x3/uL (0.0-0.5); #Monocytes 0.6 10x3/uL (0.0-1.1); #Neutrophils 2.6 10x3/uL (1.5-8.4); %Basophils 0.5 % (0.0-2.0); %Eosinophils 3.1 % (0.0-6.0); %Lymphocytes 39.5 % (18.0-47.0); %Monocytes 10.5 % (0.0-10.0); %Neutrophils 46.2 % (40.0-75.0); Hemoglobin 13.2 g/dL (13.5-17.5); Mean Corpuscular HGB CONC 34.5 g/dL (32.0-36.0); Mean Corpuscular Hemoglobin 30.3 pg (27.0-33.0); Mean Platelet Volume 10.6 fl (7.4-10.4); Platelet Count 210 10x3/uL (150-450); RBC Distribution Width 13.7 % (11.5-14.5); Red Blood Cell (RBC) Count 4.35 10x6/uL (4.32-5.72); White Blood Cell (WBC) Count 5.7 10x3/uL (3.5-10.5)
[2022-06-02 08:15] LABS: ALT (SGPT) 23 U/L (8-55); AST (SGOT) 22 U/L (5-34); Albumin 4.1 g/dL (3.4-4.8); Alkaline Phosphatase 54 U/L (40-110); Anion Gap 13 mmol/L (10-20); BUN (Urea Nitrogen) 12 mg/dL (8.4-25.7); Bilirubin, Direct 0.4 mg/dL (0.1-0.3); Bilirubin, Total 1.1 mg/dL (0.2-1.2); Calc. Creatinine Clearance 0 mL/min (70-130); Carbon Dioxide 26 mmol/L (23-31); Chloride 105 mmol/L (98-107); Estimated GFR 95; Globulin 2.6 g/dL (2.4-3.5); Glucose 103 mg/dL (80-115); Potassium 4.5 mmol/L (3.5-5.1); Protein, Total 6.7 g/dL (5.8-8.1); Sodium 139 mmol/L (136-145)
== END 2022-06-02 07:04 | disposition home or self-care (01) ==
LOC: LABBT 07:03
PROVIDERS: ATTEND Surgery
DX: Z01.818 Encounter for other preprocedural examination (principal); K80.20 Calculus of gallbladder without cholecystitis without obstruction; Z20.822 Contact with and (suspected) exposure to COVID-19
CPT/HCPCS: 80053; 80076; 85025; 87811; 93005; 93010

== ENCOUNTER 2022-06-05 05:52 | Day surgery (SDC) | payer BC ==
[2022-06-03 12:51] VITALS: BMI 30.5
[2022-06-05] MEDS ORDERED: SUGAMMADEX SODIUM 200 MG/2 ML VIAL ONE (06:09)
[2022-06-05] MEDS ORDERED: Famotidine/PF 20 mg/2ml Vial ONE (06:09)
[2022-06-05] MEDS ORDERED: fentaNYL Citrate/PF 100 MCG/2 ML SYRINGE ONE (06:09)
[2022-06-05] MEDS ORDERED: Lidocaine 1% w/Epinephrine 1:100K 20 ML VIAL ONE ×2 (06:45→08:21)
[2022-06-05] MEDS ORDERED: Bupivacaine 0.25% HCL 30 ML VIAL ONE ×2 (06:45→08:21)
[2022-06-05] MEDS ORDERED: Scopolamine 1.5 mg/72 hour Patch ONE (07:23)
[2022-06-05] MEDS ORDERED: cefOXitin 2 GM VIAL ONE (07:24)
[2022-06-05] MEDS ORDERED: Sodium Chloride 0.9% 100 ML ONE (07:24)
[2022-06-05] MEDS ORDERED: ePHEDrine 50 MG/ML VIAL ONE (07:28)
[2022-06-05] MEDS ORDERED: Ketorolac Tromethamine 30 MG/ML VIAL ONE ×2 (07:28)
[2022-06-05] MEDS ORDERED: Dexamethasone 20 MG/5 ML VIAL ONE (07:28)
[2022-06-05] MEDS ORDERED: Metoclopramide HCl 10 MG/2 ML VIAL ONE (07:28)
[2022-06-05] MEDS ORDERED: Rocuronium Bromide 10 MG/ML (10ML VIAL) ONE (07:28)
[2022-06-05] MEDS ORDERED: Lidocaine 1% PF 5 ML VIAL ONE (07:28)
[2022-06-05] MEDS ORDERED: Ondansetron PF 4 MG/2 ML Vial ONE (07:28)
[2022-06-05] MEDS ORDERED: PROPOFOL 200 MG/20 ML VIAL ONE (07:28)
== END 2022-06-05 10:40 | disposition home or self-care (01) ==
LOC: SDC 05:52
PROVIDERS: ATTEND Surgery
PROC: 0FT44ZZ Resection of Gallbladder, Percutaneous Endoscopic Approach (ICD-10-PCS; principal; 2022-06-05)
DX: K80.10 Calculus of gallbladder with chronic cholecystitis without obstruction (principal); Z79.899 Other long term (current) drug therapy; Z88.0 Allergy status to penicillin
CPT/HCPCS: 88304; 88313; C1713; J0694; J1100; J1885; J2405; J2704; J2765; J3490; S0020; S0028